=== PATIENT | female | born 1970 | race Caucasian/White ===

== ENCOUNTER 2023-03-03 09:54 | Outpatient (CLI) | payer MEDICAID ==
[2023-03-03 11:51] LABS: BASOPHILS % (AUTO) 0.6 %; EOSINOPHILS # (AUTO) 0.1 10^3/uL (0.0-0.7); EOSINOPHILS % (AUTO) 1.1 %; HCT - HEMATOCRIT 44.6 % (37.0-47.0); HGB - HEMOGLOBIN 14.8 g/dL (12.0-16.0); LYMPHOCYTES # (AUTO) 0.8 10^3/uL (1.5-3.5); LYMPHOCYTES % (AUTO) 16.6 %; MEAN CORPUSCULAR HGB CONC 33.2 g/dL (32.0-36.0); MEAN CORPUSCULAR VOLUME 90.5 fL (81.0-99.0); MONOCYTES # (AUTO) 0.3 10^3/uL (0.0-1.0); MONOCYTES % (AUTO) 6.7 %; NEUTROPHILS # (AUTO) 3.6 10^3/uL (1.5-6.6); NEUTROPHILS % (AUTO) 74.8 %; PLT - PLATELET COUNT 198 10^3/uL (130-450); RED BLOOD COUNT 4.93 10^6/uL (4.20-5.40); RED CELL DISTRIBUTION WIDTH 12.5 % (12.0-15.0); WHITE BLOOD COUNT 4.8 x10^3/uL (4.8-10.8)
[2023-03-03 11:59] LABS: % IRON SATURATION 14 % (20-50); ALBUMIN 4.5 g/dL (3.2-5.5); ALBUMIN/GLOBULIN RATIO 1.7 (1.0-2.2); ALKALINE PHOSPHATASE 104 IU/L (42-121); ALT ALANINE AMINOTRANSFERASE 33 IU/L (10-60); AST ASPARTATE AMINOTRANSFERASE 24 IU/L (10-42); BILIRUBIN,TOTAL 0.6 mg/dL (0.2-1.0); BUN - BLOOD UREA NITROGEN 18 mg/dL (6-20); CALCIUM 9.7 mg/dL (8.5-10.3); CARBON DIOXIDE - CO2 29 mmol/L (21-32); CHLORIDE 104 mmol/L (101-111); CHOL/HDL RATIO 2.7 (<4.4); CHOLESTEROL 172 mg/dL; CREATININE 0.8 mg/dL (0.6-1.3); GFR - MDRD 76 (>89); GLUCOSE 99 mg/dL (74-104); HDL CHOLESTEROL 64 mg/dL; IRON 62 ug/dL (50-212); LDL CHOLESTEROL,CALCULATED 82 mg/dL; LDL/HDL RATIO 1.3 (<4.4); POTASSIUM 3.4 mmol/L (3.5-4.5); SODIUM 139 mmol/L (135-145); TOTAL IRON BINDING CAPACITY 449 ug/dL (250-450); TOTAL PROTEIN 7.1 g/dL (6.4-8.9); TRANSFERRIN 321 mg/dL (203-362); TRIGLYCERIDES 131 mg/dL (48-352); VLDL CHOLESTEROL 26 mg/dL
[2023-03-03 12:17] LABS: THYROID STIMULATING HORMONE 3.12 uIU/mL (0.34-5.60)
[2023-03-03 12:23] LABS: FERRITIN 56.3 ng/mL (11.0-306.8)
[2023-03-03 12:29] LABS: ESTIMATED AVERAGE GLUCOSE 111 mg/dL (70-100); HEMOGLOBIN A1c% 5.5 % (4.27-6.07)
== END 2023-03-03 09:55 | disposition home or self-care (01) ==
LOC: LAB.N 09:54
PROVIDERS: ATTEND Nurse Practitioner Family
DX: E78.5 Hyperlipidemia, unspecified (principal); E66.9 Obesity, unspecified; Z86.39 Personal history of other endocrine, nutritional and metabolic disease; R60.9 Edema, unspecified; Z86.2 Personal history of diseases of the blood and blood-forming organs and certain disorders involving the immune mechanism; Z79.899 Other long term (current) drug therapy
CPT/HCPCS: 36415; 80050; 80061; 82728; 83036; 83540; 83721; 84466

== ENCOUNTER 2023-06-26 11:05 | Day surgery (SDC) | payer MEDICAID ==
[2023-06-26] MEDS ORDERED: LACTATED RINGERS 1,000 ML IV ONE (11:11)
--- NOTE | 2023-06-26 12:06 | ANESTHESIA ---
Pre-Anesthesia VS, & Labs - Diagnosis SCREENING - Procedure COLONOSCOPY Height: 5 ft 9 in Weight (kg): 101 kg Body Mass Index: 32.8 BMI Classification: Obese - NPO Last Fluid Intake: PREP 0900 - Is Patient ?: No (S/P HYSTERECTOMY) Home Medications and Allergies Home Medications: Ambulatory Orders Pramipexole [Mirapex] 0.25 mg PO HS 06/25/23 hydroCHLOROthiazide [Hydrodiuril] 25 mg PO DAILY 06/25/23 Pramipexole [Mirapex] 0.25 mg PO HS 06/25/23 hydroCHLOROthiazide [Hydrodiuril] 25 mg PO DAILY 06/25/23 Allergies/Adverse Reactions: Allergies Allergy/AdvReac Type Severity Reaction Status Date / Time droperidol [From Inapsine] AdvReac Anxiety Verified 06/25/23 12:10 erythromycin base AdvReac Nausea Verified 06/26/23 11:28 Anes History & Medical History - Anesthetic History Anesthesia Complications: reports: No previous complications Family history of Anesthesia Complications: Denies Family history of Malignant Hyperthermia: Denies - Medical History Cardiovascular: reports: None, Other (REPORTS A "HEART MURMUR", UNSURE OF TYPE, SAW CARDIOLOGY,HAD AN ECHO, TOLD IT WAS MINOR, F/U IN TEN YEARS, NEVER HAS CP OR SOB) Pulmonary: reports: None, Other (WAS IN ICU POST OP FOR SEPSIS 3 YEARS AGO; REQUIRED 3 CHEST TUBES, NOT LIMITED BY PULMONARY STATUS BUT SOMETIMES HURTS TO TAKE A DEEP BREATH) Gastrointestinal: reports: Hiatal hernia Urinary: reports: Other Musculoskeletal: reports: Osteoarthritis Endocrine/Autoimmune: reports: None Skin: reports: None - Surgical History General: reports: Cholecystectomy, Gastric surgery, Other Eyes Ears Nose Throat (EENT): reports: Other Urologic: reports: Kidney stents Gynecologic: reports: Hysterectomy Orthopedic: reports: Arthroscopic surgery, Carpal Tunnel surgery Results - EKG Results EKG Comparison: Reviewed EKG Exam General: Alert Dental: WNL Mouth Openin Fingerbreadth Neck Mobility: Normal Mallampati classification: II Thyromental Distance: 4-6 cm Cardiovascular: Regular rate Plan Anesthesia Type: Total IV Consent for Procedure(s) Verified and Reviewed: Yes Code Status: Attempt Resuscitation ASA classification: 2-Mild systemic disease Is this case an emergency?: No
[2023-06-26] MEDS ORDERED: PROPOFOL 500 MG/50 ML 500 MG/50 ML VIAL ONE (12:32)
[2023-06-26] MEDS ORDERED: PROPOFOL 200 MG/20 ML VIAL IVP ONE (13:14)
[2023-06-26] MEDS ORDERED: LACTATED RINGERS 300 ML IV ONE (13:35)
--- NOTE | 2023-06-26 13:52 | ANESTHESIA POST OP EVALUATION ---
Anesthesia Post Eval - Post Anesthesia Eval Vitals: Last Vital Signs Temp 36.1 C L 06/26/23 13:35 Pulse 65 06/26/23 13:35 Resp 16 06/26/23 13:35 BP 105/66 06/26/23 13:35 Pulse Ox 98 06/26/23 13:35 O2 Flow Rate CV Function Including HR & BP: Stable Pain Control: Satisfactory Nausea & Vomiting: Negative Mental Status: Baseline Respiratory Status: Airway Patent Hydration Status: Satisfactory Anesthesia Complications: None
[2023-06-26 13:56] VITALS: BP 108/60; O2SAT 100
== END 2023-06-26 11:06 | disposition home or self-care (01) ==
LOC: SDS 11:05
PROVIDERS: ATTEND Surgery
PROC: 0DBF8ZX Excision of Right Large Intestine, Via Natural or Artificial Opening Endoscopic, Diagnostic (ICD-10-PCS; 2023-06-26)
PROC: 0DBG8ZX Excision of Left Large Intestine, Via Natural or Artificial Opening Endoscopic, Diagnostic (ICD-10-PCS; principal; 2023-06-26 12:30)
DX: Z12.11 Encounter for screening for malignant neoplasm of colon (principal); K57.30 Diverticulosis of large intestine without perforation or abscess without bleeding; E66.9 Obesity, unspecified; Z68.32 Body mass index [BMI] 32.0-32.9, adult; Z90.49 Acquired absence of other specified parts of digestive tract
CPT/HCPCS: 45380; J7120